=== PATIENT | female | born 1980 | race Caucasian/White ===

== ENCOUNTER 2017-03-12 10:56 | Emergency (ER) | payer MEDICAID ==
[~2017-03-12] VITALS: Ht 154.9 cm; Wt 90.7 kg
[2017-03-12 12:36] VITALS: BP 127/79
== END 2017-03-12 12:36 | disposition home or self-care (01) ==
LOC: ED 10:56
DX: J20.8 Acute bronchitis due to other specified organisms (principal)
CPT/HCPCS: Q0092